=== PATIENT | female | born 1955 | race Caucasian/White ===

== ENCOUNTER → 2018-08-25 | Outpatient (CLI) | payer OTHER ==
[~2018-08-25] MED LIST: CHOLESTROL MED PO; LEVOTHYROXINE88 MCG PO; OMEPRAZOLE40 MG PO; PRAVASTATIN SOD40 MG PO; THYROID MED PO
== END ==
LOC: MAMMO 10:16
PROVIDERS: ATTEND Internal Medicine
DX: Z12.31 Encounter for screening mammogram for malignant neoplasm of breast (principal)
CPT/HCPCS: 77067

== ENCOUNTER → 2018-09-22 | Outpatient (CLI) | payer OTHER ==
--- NOTE | 2018-09-23 08:48 | Diagnostic Imaging Report ---
#[id number] - MGDXLT #UNILATERAL LEFT DIGITAL DIAGNOSTIC MAMMOGRAM WITH SPOT COMPRESSION: 09/22/2018 Comparison is made to exam dated: 08/25/2018 mammogram - [facility]. Current study contains 4 films. The tissue of the left breast is heterogeneously dense. This may lower the sensitivity of mammography. No significant masses, calcifications, or other findings are seen in the breast. The small nodule in question is circled by a mole maker. There has been no significant interval change. IMPRESSION: BENIGN There is no mammographic evidence of malignancy. A 1 year screening mammogram is recommended. The patient will be notified by letter of the results. Abdulkadir Stover Jr., D.O. cw/:09/22/2018 13:57:22 Railroad Surveyor: Yuliya GREENE(R)(M), [facility] letter sent: Normal Exam Mammogram BI-RADS: 2 Benign
== END ==
LOC: MAMMO 11:55
PROVIDERS: ATTEND Internal Medicine
DX: R92.2 Inconclusive mammogram (principal); N64.59 Other signs and symptoms in breast

== ENCOUNTER → 2019-10-04 | Outpatient (CLI) | payer MEDICARE | LOC: MAMMO 09:47 | PROVIDERS: ATTEND Internal Medicine | DX: Z12.31 Encounter for screening mammogram for malignant neoplasm of breast (principal); Z13.820 Encounter for screening for osteoporosis | CPT/HCPCS: 77067; 77080 ==

== ENCOUNTER → 2020-11-15 | Outpatient (CLI) | payer OTHER | LOC: MAMMO 09:25 | PROVIDERS: ATTEND Internal Medicine | DX: Z12.31 Encounter for screening mammogram for malignant neoplasm of breast (principal) | CPT/HCPCS: 77067 ==

== ENCOUNTER → 2022-01-31 | Day surgery (SDC) | payer OTHER ==
[2022-01-29 10:14] LABS: BASOPHILS % 0.7 % (0.0-1.0); EOSINOPHILS # (AUTO) 0.2 (0.0-0.4); EOSINOPHILS % 3.1 % (0.0-6.0); HEMATOCRIT 43.6 % (34.2-44.1); HEMOGLOBIN 13.7 g/dL (12.0-16.0); LYMPHOCYTES # (AUTO) 1.7 (1.0-3.2); LYMPHOCYTES % 31.4 % (18.0-39.1); MEAN CORPUSCULAR HEMOGLOBIN 29.5 pg (28-32); MEAN CORPUSCULAR HGB CONC 31.4 g/dL (31-35); MONOCYTES # (AUTO) 0.5 (0.2-0.8); MONOCYTES % 8.8 % (4.4-11.3); NEUTROPHILS % 55.6 % (38.7-80.0); PLATELET COUNT 257 x10e3/uL (140-360); RED BLOOD COUNT 4.64 x10e6/uL (3.6-5.1); RED CELL DISTRIBUTION WIDTH 13.1 % (11.7-14.4)
[~2022-01-31] MED LIST changes: +ASPIRIN81 MG PO; +ATORVASTATIN CA20 MG PO; +FENTANYL CITRATE/PF 100MCG/2 ML INJ ONE; +LIDOCAINE HCL 2% LOCAL INJ 5 ML SDV VIAL INJ ONE; +MIDAZOLAM HCL 2 MG/2 ML VIAL ONE; +PROPOFOL IV EMULSION 10 MG/ML 20 ML VIAL ONE
[2022-01-31 07:42] VITALS: BP 118/70
== END | disposition home or self-care (01) ==
LOC: OR 06:10
PROVIDERS: ATTEND Internal Medicine Gastroenterology
DX: K29.50 Unspecified chronic gastritis without bleeding (principal); K21.00 Gastro-esophageal reflux disease with esophagitis, without bleeding; K44.9 Diaphragmatic hernia without obstruction or gangrene; K64.8 Other hemorrhoids; Z71.3 Dietary counseling and surveillance; U07.1 COVID-19; E66.3 Overweight; E78.5 Hyperlipidemia, unspecified; E03.9 Hypothyroidism, unspecified; Z01.812 Encounter for preprocedural laboratory examination; Z79.82 Long term (current) use of aspirin; Z79.899 Other long term (current) drug therapy; Z68.28 Body mass index [BMI] 28.0-28.9, adult; Z87.891 Personal history of nicotine dependence
CPT/HCPCS: 36415; 43239; 45378; 85025; J2001; J2250; J3010

== ENCOUNTER → 2023-09-15 | Outpatient (REF) | payer OTHER ==
[~2023-09-15] MED LIST changes: -FENTANYL CITRATE/PF 100MCG/2 ML INJ ONE; -LIDOCAINE HCL 2% LOCAL INJ 5 ML SDV VIAL INJ ONE; -MIDAZOLAM HCL 2 MG/2 ML VIAL ONE; -PROPOFOL IV EMULSION 10 MG/ML 20 ML VIAL ONE
== END ==
LOC: MAMMO 10:48
PROVIDERS: ATTEND Internal Medicine
DX: Z12.31 Encounter for screening mammogram for malignant neoplasm of breast (principal); Z13.820 Encounter for screening for osteoporosis
CPT/HCPCS: 77067; 77080

== ENCOUNTER → 2024-03-05 | Day surgery (SDC) | payer OTHER ==
[2024-03-02 12:32] LABS: BASOPHILS % 0.8 % (0.0-1.0); EOSINOPHILS # (AUTO) 0.2 (0.0-0.4); EOSINOPHILS % 3.6 % (0.0-6.0); HEMATOCRIT 40.1 % (34.2-44.1); HEMOGLOBIN 12.9 g/dL (12.0-16.0); LYMPHOCYTES # (AUTO) 1.6 (1.0-3.2); LYMPHOCYTES % 30.7 % (18.0-39.1); MEAN CORPUSCULAR HGB CONC 32.2 g/dL (31-35); MEAN CORPUSCULAR VOLUME 93.3 fL (81-99); MONOCYTES # (AUTO) 0.5 (0.2-0.8); MONOCYTES % 10.1 % (4.4-11.3); NEUTROPHILS # (AUTO) 2.9 (2.1-6.9); NEUTROPHILS % 54.4 % (38.7-80.0); PLATELET COUNT 215 x10e3/uL (140-360); RED CELL DISTRIBUTION WIDTH 13.2 % (11.7-14.4); WHITE BLOOD COUNT 5.27 x10e3/uL (4.8-10.8)
[~2024-03-05] MED LIST changes: +MULTIVITAMIN1 EACH PO; +PROPOFOL IV EMULSION 10 MG/ML 20 ML VIAL ONE; +VITAMIN D PO
[2024-03-05] MEDS: LACTATED RINGER'S 1,000 ML ONE (10:58)
== END | disposition home or self-care (01) ==
LOC: ENDO 09:39
PROVIDERS: ATTEND Internal Medicine Gastroenterology
DX: K29.50 Unspecified chronic gastritis without bleeding (principal); K22.10 Ulcer of esophagus without bleeding; K22.89 Other specified disease of esophagus; K21.9 Gastro-esophageal reflux disease without esophagitis; K44.9 Diaphragmatic hernia without obstruction or gangrene; Z71.3 Dietary counseling and surveillance; E03.9 Hypothyroidism, unspecified; E78.5 Hyperlipidemia, unspecified; Z71.89 Other specified counseling; Z01.810 Encounter for preprocedural cardiovascular examination; Z01.812 Encounter for preprocedural laboratory examination; Z79.82 Long term (current) use of aspirin; Z79.899 Other long term (current) drug therapy; Z68.27 Body mass index [BMI] 27.0-27.9, adult
CPT/HCPCS: 36415; 43239; 43450; 85025; 88305; 88342; 93005; J2470; J2704; J7121; 88312